=== PATIENT | female | born 1965 | race Caucasian/White ===

== ENCOUNTER 2020-05-07 19:40 | Inpatient (IN) | payer MEDICARE, SELFPAY ==
[2020-05-07] VITALS (7 sets, daily range): BP systolic 120–162; BP diastolic 48–119; PULSE 85–101; RESP 20–30; TEMP 36.6–36.9; O2SAT 90–98; BMI 37.7; BMI 37.8
--- NOTE | 2020-05-07 19:42 | EKG12_ITS ---
Test Reason : SOB Blood Pressure : / mmHG Vent. Rate : 098 BPM Atrial Rate : 098 BPM P-R Int : 132 ms QRS Dur : 084 ms QT Int : 348 ms P-R-T Axes : 044 -25 017 degrees QTc Int : 444 ms Normal sinus rhythm Possible Anterior infarct , age undetermined Abnormal ECG Confirmed by COLLEEN PLUMMER, BRIGITTE ([id number]), editor book DONATO OWEN ([id number]) on 05/10/2020 11:32:32 AM Referred By: DAYA Confirmed By:BRIGITTE MACIAS MD
--- NOTE | 2020-05-07 19:43 | RAD_ITS ---
STUDY: X-RAY CHEST REASON FOR EXAM: Female, 54 years old. Cough, shortness of breath x1 day. Unable to follow breathing instructions. TECHNIQUE: Single AP portable view of the chest. COMPARISON: None. FINDINGS: Low lung volumes. No pleural effusion. Mild bilateral pulmonary opacities. Normal size heart. Normal mediastinum and lesley. Normal visualized pulmonary arteries. Normal visualized aortic arch and descending thoracic aorta. Normal visualized thoracic spine. Normal visualized ribs, clavicles, and shoulders. There is no demonstrated abnormality of the visualized soft tissue structures of the upper abdomen. RAD/Chest 1 View (Portable) IMPRESSION: 1. Low lung volumes. 2. Mild bilateral pulmonary opacities suspicious for pneumonia. Follow-up is recommended. Electronically Signed: Destiney Mckeon MD at 21:27 EST Tel , Service support ,
--- NOTE | 2020-05-07 19:50 | ED.RN ---
NO OLD EKGS IN MUSE
--- NOTE | 2020-05-07 19:58 | ED.DCSUM_ITS ---
History of Present Illness Chief Complaint: Shortness of Breath Informant: Patient, EMS Onset: Days Worsened by: Exertion Relieved by: Oxygen Associated Symptoms: Chills, Cough, Fever, White sputum Narrative: Patient is a 54-year-old female denies any past medical history presenting with worsening shortness of breath and difficulty breathing. She states her symptoms been going on for the past week. She is had a cough has been productive of clear sputum. She does she states she is not been around anyone that is been sick but then states that her [id number] had Covid 2 to 3 weeks ago. Patient's been taking Tylenol for fever at home. She not murmur last time she had a dose. She checked her oxygen at home and it was 90% with exertion and 92% at rest. This is what made her decide to come to the emergency room. She called 911. Patient arrived on 2 L of oxygen. Patient has any swelling of her legs. She denies any other medical history. Nuys any nausea or vomiting. Denies any change in bowel habits. Denies any loss of taste or smell. No other complaints at this time. Past Medical History - Allergies and Home Meds Allergies/Adverse Reactions: Allergies No Known Allergies Allergy (Verified 05/07/20 19:41) Past Medical History: None Surgical History: cholecystectomy Lives: With Family Smoking Status: Never smoker Review of Systems General: Reports: Chills, Fever, Malaise. Denies: Sweats Eyes: Denies: Visual changes - bilaterally, Diplopia ENT: Denies: Rhinorrhea, Sore throat Cardiovascular: Denies: Chest pain, Palpitations Respiratory: Reports: Dyspnea, Cough, Sputum, Dyspnea on exertion Gastrointestinal: Denies: Abdominal pain, Nausea, Vomiting, Diarrhea, Melena, Hematochezia Genitourinary: Denies: Dysuria, Hematuria, Frequency Musculoskeletal: Denies: Back pain, Extremity Pain Skin: Denies: Rash, Wounds Neurological: Denies: Headache, Weakness, Numbness Physical Exam Vital Signs/Narrative: Vital Signs Temp Pulse Resp BP Pulse Ox 05/07/20 19:52 97 05/07/20 19:44 98.5 F 101 H 30 H 162/119 H 90 Inital Vital Signs reviewed: Yes General: Well nourished, Well developed, No Acute Distress Head: Normocephalic, Atraumatic Eyes: Perrl, EOMI ENT: Moist mucous membranes, No rhinorrhea Neck: Supple, Nontender Cardiovascular: Regular rate, Regular rhythm, No murmurs Respiratory: No distress, Chest nontender, Diminished, Decreased Air Movement, - - Crackles at the bases, right greater than left Abdomen: Soft, Nontender, Nondistended, Normal bowel sounds Back: Nontender, Normal Inspection Extremities: Nontender, No edema Skin: Normal color, No rash Neurological: Alert, Oriented x3, Cranial nerves II-XII grossly intact, Normal Strength, Normal Sensation Psychological: Normal affect, Normal Mood Diagnostic/Tx/Re-eval Chest X-Ray - ED: 1 View, Read by ED Physician, Right Infiltrate, Left Infiltrate Laboratory Data 05/07/20 05/07/20 05/07/20 20:00 20:00 20:00 WBC 6.4 RBC 5.95 H Hgb 15.6 H Hct 50.7 H MCV 85.2 MCH 26.2 L MCHC 30.8 L RDW Std Deviation 43.2 RDW Coeff of Emery 13.9 Plt Count 331 MPV 9.2 Immature Gran % (Auto) 1.100 H Neut % (Auto) 60.2 Lymph % (Auto) 31.3 [place] % (Auto) 5.9 Eos % (Auto) 0.2 Baso % (Auto) 1.3 H Absolute Neuts (auto) 3.9 Absolute Lymphs (auto) 2.00 Nucleated RBC % 0 Fibrinogen 834 H Sodium 139 Potassium 3.7 Chloride 105 Carbon Dioxide 26.0 Anion Gap 8 BUN 23 H Creatinine 1.09 H Estim Creat Clear Calc 56.52 Est GFR (MDRD) Af Amer 68 Est GFR (MDRD) Non-Af 56 L BUN/Creatinine Ratio 21.1 H Glucose 161 H Lactic Acid Calcium 9.1 Total Bilirubin 0.50 AST 57 H ALT 29 Alkaline Phosphatase 103 Lactate Dehydrogenase 453 H Total Creatine Kinase 146 Troponin I < 0.015 Total Protein 8.5 H Albumin 2.9 L Globulin 5.6 H Albumin/Globulin Ratio 0.5 L 05/07/20 20:00 WBC RBC Hgb Hct MCV MCH MCHC RDW Std Deviation RDW Coeff of Emery Plt Count MPV Immature Gran % (Auto) Neut % (Auto) Lymph % (Auto) [place] % (Auto) Eos % (Auto) Baso % (Auto) Absolute Neuts (auto) Absolute Lymphs (auto) Nucleated RBC % Fibrinogen Sodium Potassium Chloride Carbon Dioxide Anion Gap BUN Creatinine Estim Creat Clear Calc Est GFR (MDRD) Af Amer Est GFR (MDRD) Non-Af BUN/Creatinine Ratio Glucose Lactic Acid 1.9 Calcium Total Bilirubin AST ALT Alkaline Phosphatase Lactate Dehydrogenase Total Creatine Kinase Troponin I Total Protein Albumin Globulin Albumin/Globulin Ratio - Rhythm Strip Rhythm Strip: Sinus Rhythm Rate: 98 Ectopy: None - EKG Initial EKG Interpretation: Sinus Rhythm, - - Sinus rhythm at a rate of 98Normal intervalsLeft axisNormal ST segments Treatment - Dyspnea: Oxygen - Medical Decision Making Patient evaluated for worsening shortness of breath. She has had cough and respiratory symptoms for about a week. She is had exposure to people with COVID-19. Patient arrives tachypneic and 90% on room air. She is requiring supplemental oxygen. Chest x-ray interpreted by myself appears to be a patchy multifocal infiltrate consistent with COVID-19 pneumonia. No leukocytosis. Slightly hemoconcentrated with a hemoglobin of 15.6 but her platelets are normal at 331. Creatinine is 1.09 and I do not have a baseline to compare to. Patient does have an elevated lactate dehydrogenase and fibrinogen consistent with COVID-19 infection. She will be admitted to hospital service for further treatment and management. Patient is given IV Decadron in the ER. Patient is stable at time of disposition and agreeable with plan of care. ED Disposition - Plan for ED Patient: Disposition: Acute Care Hospital [facility] Diagnosis: Dyspnea due to COVID-19, Pneumonia due to COVID-19 virus
[2020-05-07 20:24] LABS: Fibrinogen 834 mg/dl (203-444)
[2020-05-07 20:25] LABS: Absolute Neutrophil Count 3.9 X10^3/uL (2.0-7.7); Basophil# 0.08 X10^3/uL; Basophil% 1.3 % (0-1); Eosinophil# 0.01 X10^3/uL; Eosinophils% 0.2 % (0-5); Hematocrit 50.7 % (37-47); Hemoglobin 15.6 g/dL (12.0-15.0); Lymphocyte % 31.3 % (19-41); Mean Corp Hgb Conc 30.8 g/dL (32-36); Mean Corpuscular Hgb 26.2 pg (27.0-32.0); Mean Corpuscular Volume 85.2 fL (81-99); Mean Platelet Vol. 9.2 fl (6.2-12.0); Monocyte# 0.38 X10^3/uL; Monocyte% 5.9 % (0-10); NRBC Flagged by Analyzer 0 % (0-5); Neutrophil # 3.86 X10^3/uL (2.7-7.7); Neutrophil % 60.2 % (47-70); POSITIVE MORPHOLOGY YES; Platelet Count 331 K/mm3 (150-450); RBC Distribution Width CV 13.9 % (11.6-14.6); RBC Distribution Width SD 43.2 fl (35.1-43.9); Red Blood Count 5.95 M/mm3 (4.2-5.4); White Blood Count 6.4 K/mm3 (4.4-11.0)
[2020-05-07 20:34] LABS: ALB/GLOB Ratio 0.5 RATIO (0.9-2.4); AST(SGOT) 57 U/L (15-37); Alanine Aminotransfer ALT/SGPT 29 U/L (13-56); Albumin, Serum 2.9 g/dL (3.2-5.0); Alkaline Phosphatase 103 U/L (45-117); Anion Gap 8 (5-15); BUN 23 mg/dL (7-18); BUN/Creat Ratio 21.1 RATIO (10-20); CPK Total, Creatine Kinase 146 U/L (26-192); Calcium,Total 9.1 mg/dL (8.5-10.1); Chloride 105 mmol/L (98-107); Creatinine, Serum 1.09 mg/dL (0.55-1.02); EST Glomerular Filtration Rate 56 mL/min (>60); Est Glom Filt Rate - Afr Amer 68 mL/min (>60); Estimated Creatinine Clearance 56.52 ml/min; Globulin 5.6 g/dL (2.2-4.2); Glucose 161 mg/dL (74-106); LDH 453 U/L (84-246); Potassium 3.7 mmol/L (3.5-5.1); Protein, Total 8.5 g/dL (6.4-8.2); Sodium Level 139 mmol/L (136-145)
[2020-05-07 20:49] LABS: Differential Indicated SCAN CRITERIA MET
[2020-05-07] MEDS: dexAMETHasone 10 MG/ML Vial IV (20:55)
[2020-05-07 20:56] LABS: Lactic Acid 1.9 mmol/L (0.4-1.9)
--- NOTE | 2020-05-07 21:08 | HP.PCM_ITS ---
Problem List (1) Suspected COVID-19 virus infection Status: Acute (2) Dyspnea due to COVID-19 Status: Acute History of Present Illness Date of Admission: 05/07/20 Chief Complaint: shortness of breath The patient is a 54 year old patient of the [facility] who presents the emergency room by squad due to shortness of breath. Patient states onset of symptoms began last week on Thursday and have progressively gotten worse over the course of the week. The patient has not been able to move very far over the past 2 days without becoming very short of breath. Respiratory rate of 40 and oxygen saturation are 90% on room air with pronounced cough and difficulty breathing. Chest x-ray reveals Covid-like pattern and Covid test was pending at time of admission. She had been exposed previously at a and by other known family members known to have had the virus. Due to oxygen requirement and acute shortness of breath patient will be admitted for management of Covid disease. The patient did improve with oxygen supplementation in the emergency room and is stable for the cohort floor. Past Medical History Allergies No Known Allergies Allergy (Verified 05/07/20 19:41) Home Medications: Ambulatory Orders Medication Instructions Recorded NK 05/07/20 Surgical History: cholecystectomy Lives: With Family Smoking Status: Never smoker Review of Systems Constitutional: Reports: Weakness, Fatigue HEENT: Denies: Difficulty Swallowing, Head Aches Cardiovascular: Denies: Chest Pain Respiratory: Reports: Cough, Shortness of breath at rest, Shortness of breath upon exertion Gastrointestinal: Denies: Abdominal Pain Genitourinary: Denies: Dysuria Musculoskeletal: Denies: Muscle pain Neurological: Denies: Confusion Psychiatric: Denies: Anxiety VTE Information - Inpt Only VTE Present on Admission: No VTE Mechan Device Prophylaxis: None VTE Pharm Prophylaxis ordered?: Yes - Physical Exam Vitals/I&O's: Vital Signs Temp Pulse Resp BP Pulse Ox 98.2 F 98 27 H 135/48 H 98 05/07/20 21:04 05/07/20 21:04 05/07/20 21:04 05/07/20 21:04 05/07/20 21:04 Oxygen Flow Rate (L/min) 2 Oxygen Delivery Method Nasal Cannula Weight: 233 lb 14.567 oz Body Mass Index (BMI) 37.7 Intake and Output for Last 24 Hours 05/06/20 05/06/20 05/07/20 00:59 23:59 23:59 Intake Total 500 / 500 Balance 500 / 500 General: Alert, Oriented x3, Cooperative HEENT: Atraumatic, Normocephalic Neck: Supple Lungs: Diminished, Wheezes Cardiovascular: Regular rate, Normal S1, Normal S2, No murmurs Abdomen: Bowel Sounds Present Extremities: No edema, Capillary Refill Less than 3 Seconds Skin: No rashes Musculoskeletal: No Tenderness to Palpation of Joints or Extremities Neurological: Neuro grossly intact Psych/Mental Status: Normal Affect, Appropriate Laboratory Results 05/07/20 19:45: COVID-19 (CON) Pending 05/07/20 20:00: Fibrinogen 834 H 05/07/20 20:00: Sodium 139, Potassium 3.7, Chloride 105, Carbon Dioxide 26.0, Anion Gap 8, BUN 23 H, Creatinine 1.09 H, Estim Creat Clear Calc 56.52, Est GFR (MDRD) Af Amer 68, Est GFR (MDRD) Non-Af 56 L, BUN/Creatinine Ratio 21.1 H, Glucose 161 H, Calcium 9.1, Total Bilirubin 0.50, AST 57 H, ALT 29, Alkaline Phosphatase 103, Lactate Dehydrogenase 453 H, Total Creatine Kinase 146, Troponin I < 0.015, Total Protein 8.5 H, Albumin 2.9 L, Globulin 5.6 H, Albumin/Globulin Ratio 0.5 L 05/07/20 20:00: Procalcitonin Pending 05/07/20 20:00: WBC 6.4, RBC 5.95 H, Hgb 15.6 H, Hct 50.7 H, MCV 85.2, MCH 26.2 L, MCHC 30.8 L, RDW Std Deviation 43.2, RDW Coeff of Emery 13.9, Plt Count 331, MPV 9.2, Immature Gran % (Auto) 1.100 H, Neut % (Auto) 60.2, Lymph % (Auto) 31.3, [place] % (Auto) 5.9, Eos % (Auto) 0.2, Baso % (Auto) 1.3 H, Absolute Neuts (auto) 3.9, Absolute Lymphs (auto) 2.00, Nucleated RBC % 0 05/07/20 20:00: Lactic Acid 1.9 Assessment/Plan All Active Problems Suspected COVID-19 virus infection (Acute) Dyspnea due to COVID-19 (Acute) Plan 1. Suspected Covid 19/respiratory distress?admit patient to Covid cohort floor, initiate strict isolation recall with oxygen support, albuterol HFA every 4 hours as needed shortness of breath, patient received dose of Decadron in the emergency room will see if that is necessary to repeat tomorrow. Will allow for regular diet, CBC in the morning and attempt to wean off oxygen as tolerated. 2. DVT prophylaxis?low molecular weight heparin Inpatient E&M: 39378 Init Hosp L3
[2020-05-07 21:18] LABS: Procalcitonin 0.15 ng/mL (0.00-0.09)
[2020-05-07 21:44] LABS: Atypical Lymphocyte RARE %; Differential Comment SCANNED
[2020-05-08] MEDS: guaiFENesin/Codeine 5 ML UDC PO (01:26)
[2020-05-08 04:24] VITALS: BP 113/65; PULSE 79; RESP 22; TEMP 36.5; O2SAT 92
[2020-05-08 06:23] VITALS: BP 121/76; PULSE 79; RESP 20; TEMP 36.6; O2SAT 95
[2020-05-08 07:40] LABS: Absolute Lymphocyte Count 1.22 X10^3/uL (0.83-4.51); Absolute Neutrophil Count 3.1 X10^3/uL (2.0-7.7); Basophil# 0.05 X10^3/uL; Basophil% 1.1 % (0-1); Hematocrit 46.2 % (37-47); Lymphocyte # 1.22 X10^3/ul (4.0); Lymphocyte % 26.1 % (19-41); Mean Corp Hgb Conc 30.3 g/dL (32-36); Mean Corpuscular Volume 85.9 fL (81-99); Mean Platelet Vol. 9.3 fl (6.2-12.0); Monocyte# 0.21 X10^3/uL; Monocyte% 4.5 % (0-10); NRBC Flagged by Analyzer 0 % (0-5); Neutrophil # 3.09 X10^3/uL (2.7-7.7); Neutrophil % 66.2 % (47-70); POSITIVE MORPHOLOGY YES; Platelet Count 339 K/mm3 (150-450); RBC Distribution Width SD 43.8 fl (35.1-43.9); Red Blood Count 5.38 M/mm3 (4.2-5.4); White Blood Count 4.7 K/mm3 (4.4-11.0)
[2020-05-08 07:58] LABS: Differential Indicated SCAN CRITERIA MET
[2020-05-08 08:56] LABS: Reactive Lymphocyte 1+
[2020-05-08] MEDS: Enoxaparin 40 MG/0.4 ML Syringe SC (09:31)
--- NOTE | 2020-05-08 10:56 | PN_ITS ---
Patient Problems: Active and Suspected Problems Suspected COVID-19 virus infection (Acute) Dyspnea due to COVID-19 (Acute) Dyspnea due to COVID-19 (Acute) Pneumonia due to COVID-19 virus (Acute) Subjective: Patient seen and examined. She was admitted with a complaint of progressively worsening shortness of breath and was diagnosed with Covid pneumonia.She is on 3L of oxygen this morning, and has no complaints. She is feeling better than when she came in. She has remained hemodynamically stable. Vitals/I&O's: Vital Signs Temp Pulse Resp BP Pulse Ox 97.9 F 79 20 H 121/76 H 95 05/08/20 06:23 05/08/20 06:23 05/08/20 06:23 05/08/20 06:23 05/08/20 06:23 Oxygen Flow Rate (L/min) 3 Oxygen Delivery Method Nasal Cannula Weight: 227 lb 1.218 oz Body Mass Index (BMI) 37.8 Intake and Output for Last 24 Hours 05/06/20 05/07/20 05/08/20 23:59 23:59 23:59 Intake Total 500 / 500 0 / 0 Output Total 0 / 0 Balance 500 / 500 0 / 0 General: Alert, Oriented x3, Cooperative, No apparent distress HEENT: Atraumatic, PERRLA, EOMI, Normocephalic Oral: Moist Mucosa Neck: Supple, No JVD, Negative Carotid Bruits Lungs: - - diminished breath sounds bibasally, no wheezes or crackles. On 3L of oxygen by nasal canula Cardiovascular: Regular rate, Regular Rhythm, Normal S1, Normal S2, No murmurs Abdomen: Bowel Sounds Present, Soft, Non Tender, Non-Distended, No Hepato- splenomegaly Extremities: No clubbing, No cyanosis, No edema, Capillary Refill Less than 3 Seconds Skin: No rashes, No breakdown Musculoskeletal: No Tenderness to Palpation of Joints or Extremities Lymphatic: No Cervical, Supraclavicular, or Inguinal Adenopathy Neurological: Cranial nerves II-XII grossly intact, Neuro grossly intact, Motor Exam 5/5 strength throughout Psych/Mental Status: Normal Affect, Appropriate, Alert and oriented to time, place, person, mood and affect Microbiology Past 72 Hours 05/07/20 19:45 Mucosa - Nasopharyngeal Respiratory Panel (PCR) - Final Laboratory Results 05/07/20 19:45: COVID-19 (CON) Detected 05/07/20 20:00: Fibrinogen 834 H 05/07/20 20:00: Sodium 139, Potassium 3.7, Chloride 105, Carbon Dioxide 26.0, Anion Gap 8, BUN 23 H, Creatinine 1.09 H, Estim Creat Clear Calc 56.52, Est GFR (MDRD) Af Amer 68, Est GFR (MDRD) Non-Af 56 L, BUN/Creatinine Ratio 21.1 H, Glucose 161 H, Calcium 9.1, Total Bilirubin 0.50, AST 57 H, ALT 29, Alkaline Phosphatase 103, Lactate Dehydrogenase 453 H, Total Creatine Kinase 146, Troponin I < 0.015, Total Protein 8.5 H, Albumin 2.9 L, Globulin 5.6 H, Albumin/Globulin Ratio 0.5 L 05/07/20 20:00: Procalcitonin 0.15 H 05/07/20 20:00: WBC 6.4, RBC 5.95 H, Hgb 15.6 H, Hct 50.7 H, MCV 85.2, MCH 26.2 L, MCHC 30.8 L, RDW Std Deviation 43.2, RDW Coeff of Emery 13.9, Plt Count 331, MPV 9.2, Immature Gran % (Auto) 1.100 H, Neut % (Auto) 60.2, Lymph % (Auto) 31.3, [place] % (Auto) 5.9, Eos % (Auto) 0.2, Baso % (Auto) 1.3 H, Absolute Neuts (auto) 3.9, Absolute Lymphs (auto) 2.00, Nucleated RBC % 0, Differential Comment SCANNED, Atypical Lymphocytes RARE 05/07/20 20:00: Lactic Acid 1.9 05/08/20 06:10: WBC 4.7, RBC 5.38, Hgb 14.0, Hct 46.2, MCV 85.9, MCH 26.0 L, MCHC 30.3 L, RDW Std Deviation 43.8, RDW Coeff of Emery 14.0, Plt Count 339, MPV 9.3, Immature Gran % (Auto) 2.100 H, Neut % (Auto) 66.2, Lymph % (Auto) 26.1, [place] % (Auto) 4.5, Eos % (Auto) 0.0, Baso % (Auto) 1.1 H, Absolute Neuts (auto) 3.1, Absolute Lymphs (auto) 1.22, Nucleated RBC % 0, Reactive Lymphocytes 1+ Diagnostic Data Chest X-Ray 05/07/20 19:43 IMPRESSION: 1. Low lung volumes. 2. Mild bilateral pulmonary opacities suspicious for pneumonia. Follow-up is recommended. Electronically Signed: Destiney Mckeon MD at 21:27 EST Tel , Service support , Current Medications Albuterol Sulfate (Albuterol Sulfate 18 Gm Inhaler (200 Puffs)) 2 puff IH Q4H PRN PRN PRN Reason: SHORTNESS OF BREATH Last Admin: 05/08/20 00:50 Dose: 2 puff Documented by: Enoxaparin Sodium (Enoxaparin 40 Mg/0.4 Ml Syringe) 40 mg SC DAILY CHANTAL Last Admin: 05/08/20 09:31 Dose: 40 mg Documented by: Guaifenesin/Codeine Phosphate (Guaifenesin/Codeine 5 Ml Udc) 5 ml PO Q6H PRN PRN PRN Reason: COUGH Last Admin: 05/08/20 01:26 Dose: 5 ml Documented by: Miscellaneous Information (Inhaler, Assist Devices 1 Each Spacer) 1 each INHALATION PRN PRN PRN Reason: WITH ALBUTEROL MDI Ondansetron HCl (Ondansetron 4 Mg/2 Ml Vial) 4 mg IV Q8H PRN PRN PRN Reason: NAUSEA/VOMITING Sodium Chloride (0.9% Saline Lock 10 Ml Syringe) 10 - 40 ml IV UD PRN PRN Reason: SALINE FLUSH Medical Necessity - Tobacco Use Smoking Status: Never smoker Assessment/Plan All Active Problems Suspected COVID-19 virus infection (Acute) Dyspnea due to COVID-19 (Acute) Dyspnea due to COVID-19 (Acute) Pneumonia due to COVID-19 virus (Acute) # Acute hypoxic respiratory insufficiency due to COVID 19 infection * On 3 L of oxygen by nasal cannula * Titrate oxygen to maintain saturation above 90%. * On IV Decadron. * Breathing treatment with bronchodilators. * Pulmonology consulted. * #COVID-19 pneumonia: As above #DVT prophylaxis: Lovenox Inpatient E&M: 43278 Subs Hosp L3
[2020-05-08 12:20] VITALS: BP 142/83; PULSE 89; RESP 18; TEMP 36.4; O2SAT 93
--- NOTE | 2020-05-08 13:40 | CASEMGMT ---
JUAN GARCIA called patient in room for initial transition planning/care coordination assessment. JUAN GARCIA introduced self and role at [facility]. Patient is alert and oriented. Patient willing to participate in assessment and is able to answer all questions appropriately. Care providers, pharmacy, and demographics verified. Patient wishes to discharge home, denies need for home health at this time. Patient states she has no further needs or concerns at this time. CM to follow for discharge planning needs that may arise. PCP: Ja Specialists: none Preferred Pharmacy: [facility] with [facility] retail at discharge. Insurance: none Prescription Benefit: none Living Will/HPOA: none LNOK: Living Arrangements: Patient lives with children in a 2 story home with bed and bath on first floor. 2 steps to enter the home with railing. Patient states she is independent at home. Patient states that no one else in the home as been sick. JUAN GARCIA instructed that and children should be isolating at home and following directions of health depepartment. Transportation: self/ DME/HHC: Patient state she has cane at home. Patient would like [employer] at discharge for DME. Will monitor need for home oxygen at discharge. Disposition Plan: Patient to discharge home with family support and follow-up plans in place. Alisa BOO, RN, CM
[2020-05-08 18:20] VITALS: BP 145/83; PULSE 93; RESP 18; TEMP 36.4; O2SAT 94
[2020-05-08 20:20] VITALS: BP 152/77; PULSE 90; RESP 20; TEMP 36.9; O2SAT 95
[2020-05-09] VITALS (7 sets, daily range): BP systolic 120–159; BP diastolic 75–89; PULSE 68–93; RESP 18–22; TEMP 36.4–36.8; O2SAT 94–97
[2020-05-09 08:29] LABS: Absolute Lymphocyte Count 2.88 X10^3/uL (0.83-4.51); Absolute Neutrophil Count 6.1 X10^3/uL (2.0-7.7); Basophil# 0.03 X10^3/uL; Basophil% 0.3 % (0-1); Eosinophil# 0.01 X10^3/uL; Eosinophils% 0.1 % (0-5); Hemoglobin 13.4 g/dL (12.0-15.0); Lymphocyte # 2.88 X10^3/ul (4.0); Lymphocyte % 29.4 % (19-41); Mean Corp Hgb Conc 29.8 g/dL (32-36); Mean Corpuscular Volume 87.2 fL (81-99); Mean Platelet Vol. 9.1 fl (6.2-12.0); Monocyte# 0.55 X10^3/uL; Monocyte% 5.6 % (0-10); NRBC Flagged by Analyzer 0 % (0-5); Neutrophil # 6.12 X10^3/uL (2.7-7.7); Neutrophil % 62.5 % (47-70); POSITIVE MORPHOLOGY YES; Platelet Count 429 K/mm3 (150-450); RBC Distribution Width SD 45.1 fl (35.1-43.9); Red Blood Count 5.16 M/mm3 (4.2-5.4); White Blood Count 9.8 K/mm3 (4.4-11.0)
[2020-05-09 08:30] LABS: Differential Indicated SCAN CRITERIA MET
[2020-05-09 08:45] LABS: Anion Gap 7 (5-15); BUN 24 mg/dL (7-18); BUN/Creat Ratio 21.4 RATIO (10-20); Calcium,Total 8.9 mg/dL (8.5-10.1); Chloride 109 mmol/L (98-107); Creatinine, Serum 1.12 mg/dL (0.55-1.02); EST Glomerular Filtration Rate 54 mL/min (>60); Est Glom Filt Rate - Afr Amer 66 mL/min (>60); Estimated Creatinine Clearance 52.87 ml/min; Glucose 152 mg/dL (74-106); Potassium 3.6 mmol/L (3.5-5.1); Sodium Level 144 mmol/L (136-145)
[2020-05-09 09:00] LABS: Differential Comment SCANNED
[2020-05-09] MEDS: Enoxaparin 40 MG/0.4 ML Syringe SC (09:41)
[2020-05-09] MEDS: 0.9% Saline Lock 10 ML Syringe IV (09:41)
--- NOTE | 2020-05-09 11:00 | PN_ITS ---
Patient Problems: Active and Suspected Problems Suspected COVID-19 virus infection (Acute) Dyspnea due to COVID-19 (Acute) Dyspnea due to COVID-19 (Acute) Pneumonia due to COVID-19 virus (Acute) Objective: Patient seen and examined. She is feeling better today though she remains on 2 L of oxygen. Review of symptoms otherwise negative. Labs and vitals reviewed. She has remained hemodynamically stable. Vitals/I&O's: Vital Signs Temp Pulse Resp BP Pulse Ox 98.2 F 93 18 124/81 H 94 05/09/20 09:47 05/09/20 09:47 05/09/20 09:47 05/09/20 09:47 05/09/20 09:48 Oxygen Flow Rate (L/min) 2 Oxygen Delivery Method Nasal Cannula Weight: 227 lb 1.218 oz Body Mass Index (BMI) 37.8 Intake and Output for Last 24 Hours 05/07/20 05/08/20 05/09/20 23:59 23:59 23:59 Intake Total 500 / 500 600 / 600 Output Total 0 / 0 Balance 500 / 500 600 / 600 General: Alert, Oriented x3, Cooperative, No apparent distress HEENT: Atraumatic, PERRLA, EOMI, Normocephalic Oral: Moist Mucosa Neck: Supple, No JVD, Negative Carotid Bruits Lungs: - - diminished breath sounds bibasally, no wheezes or crackles. On 2L of oxygen by nasal canula Cardiovascular: Regular rate, Regular Rhythm, Normal S1, Normal S2, No murmurs Abdomen: Bowel Sounds Present, Soft, Non Tender, Non-Distended, No Hepato- splenomegaly Extremities: No clubbing, No cyanosis, No edema, Capillary Refill Less than 3 Seconds Skin: No rashes, No breakdown Musculoskeletal: No Tenderness to Palpation of Joints or Extremities Lymphatic: No Cervical, Supraclavicular, or Inguinal Adenopathy Neurological: Cranial nerves II-XII grossly intact, Neuro grossly intact, Motor Exam 5/5 strength throughout Psych/Mental Status: Normal Affect, Appropriate, Alert and oriented to time, p lace, person, mood and affect Microbiology Past 72 Hours 05/07/20 19:45 Mucosa - Nasopharyngeal Respiratory Panel (PCR) - Final Laboratory Results 05/09/20 08:00: WBC 9.8, RBC 5.16, Hgb 13.4, Hct 45.0, MCV 87.2, MCH 26.0 L, MCHC 29.8 L, RDW Std Deviation 45.1 H, RDW Coeff of Emery 14.0, Plt Count 429, MPV 9.1, Immature Gran % (Auto) 2.100 H, Neut % (Auto) 62.5, Lymph % (Auto) 29.4, [place] % (Auto) 5.6, Eos % (Auto) 0.1, Baso % (Auto) 0.3, Absolute Neuts (auto) 6.1, Absolute Lymphs (auto) 2.88, Nucleated RBC % 0, Differential Comment SCANNED 05/09/20 08:00: Sodium 144, Potassium 3.6, Chloride 109 H, Carbon Dioxide 28.0, Anion Gap 7, BUN 24 H, Creatinine 1.12 H, Estim Creat Clear Calc 52.87, Est GFR (MDRD) Af Amer 66, Est GFR (MDRD) Non-Af 54 L, BUN/Creatinine Ratio 21.4 H, Glucose 152 H, Calcium 8.9 Diagnostic Data Chest X-Ray 05/07/20 19:43 IMPRESSION: 1. Low lung volumes. 2. Mild bilateral pulmonary opacities suspicious for pneumonia. Follow-up is recommended. Electronically Signed: Destiney Mckeon MD at 21:27 EST Tel , Service support , Current Medications Albuterol Sulfate (Albuterol Sulfate 18 Gm Inhaler (200 Puffs)) 2 puff IH Q4H PRN PRN PRN Reason: SHORTNESS OF BREATH Last Admin: 05/08/20 00:50 Dose: 2 puff Documented by: Enoxaparin Sodium (Enoxaparin 40 Mg/0.4 Ml Syringe) 40 mg SC DAILY CHANTAL Last Admin: 05/09/20 09:41 Dose: 40 mg Documented by: Guaifenesin/Codeine Phosphate (Guaifenesin/Codeine 5 Ml Udc) 5 ml PO Q6H PRN PRN PRN Reason: COUGH Last Admin: 05/08/20 01:26 Dose: 5 ml Documented by: Miscellaneous Information (Inhaler, Assist Devices 1 Each Spacer) 1 each INHALATION PRN PRN PRN Reason: WITH ALBUTEROL MDI Ondansetron HCl (Ondansetron 4 Mg/2 Ml Vial) 4 mg IV Q8H PRN PRN PRN Reason: NAUSEA/VOMITING Sodium Chloride (0.9% Saline Lock 10 Ml Syringe) 10 - 40 ml IV UD PRN PRN Reason: SALINE FLUSH Last Admin: 05/09/20 09:41 Dose: 10 ml Documented by: KOJO Vital Signs/Narrative: Vital Signs Temp Pulse Resp BP Pulse Ox 05/09/20 09:48 94 05/09/20 09:47 98.2 F 93 18 124/81 H 97 05/09/20 09:46 97 Medical Necessity - Tobacco Use Smoking Status: Never smoker Assessment/Plan All Active Problems Suspected COVID-19 virus infection (Acute) Dyspnea due to COVID-19 (Acute) Dyspnea due to COVID-19 (Acute) Pneumonia due to COVID-19 virus (Acute) # Acute hypoxic respiratory insufficiency due to COVID 19 infection * now on 2 L of oxygen by nasal cannula; says she is feeling much better * Titrate oxygen to maintain saturation above 90%. * on PO decadron * Breathing treatment with bronchodilators. * #COVID-19 infection: As above #DVT prophylaxis: Lovenox Inpatient E&M: 12777 Subs Hosp L2
--- NOTE | 2020-05-09 17:28 | CON.PCM_ITS ---
Problem List (1) Pneumonia due to COVID-19 virus Status: Acute Reason for Consult: covid Consulted by: Dr. Ambrose History of Present Illness: The patient is a 54 year old F went to , then 04/26, developed fatigue, aches, not feeling well. Then developed chills, cough, dyspnea. No one else at home is sick, none have been tested. Came to ED, sat of 90%, put on O2 and dex. Feeling much better. Full ROS performed and neg except as noted above. - Medical History Surgical History: reviewed Allergies/Adverse Reactions: Allergies No Known Allergies Allergy (Verified 05/07/20 19:41) Home Medications: Ambulatory Orders Medication Instructions Recorded NK 05/07/20 - Social History Tobacco Use: non-smoker Vital Signs Temp Pulse Resp BP Pulse Ox 98.1 F 82 19 H 159/89 H 94 05/09/20 16:25 05/09/20 16:25 05/09/20 16:25 05/09/20 16:25 05/09/20 16:25 Oxygen Flow Rate (L/min) 2 Oxygen Delivery Method Nasal Cannula Weight: 103 kg Body Mass Index (BMI) 37.8 Microbiology Past 72 Hours 05/07/20 19:45 Respiratory Panel (PCR) - Final Mucosa - Nasopharyngeal Laboratory Tests Past 24 Hrs 05/09/20 05/09/20 08:00 08:00 WBC 9.8 RBC 5.16 Hgb 13.4 Hct 45.0 MCV 87.2 MCH 26.0 L MCHC 29.8 L RDW Std Deviation 45.1 H RDW Coeff of Emery 14.0 Plt Count 429 MPV 9.1 Immature Gran % (Auto) 2.100 H Neut % (Auto) 62.5 Lymph % (Auto) 29.4 [place] % (Auto) 5.6 Eos % (Auto) 0.1 Baso % (Auto) 0.3 Absolute Neuts (auto) 6.1 Absolute Lymphs (auto) 2.88 Nucleated RBC % 0 Differential Comment SCANNED Sodium 144 Potassium 3.6 Chloride 109 H Carbon Dioxide 28.0 Anion Gap 7 BUN 24 H Creatinine 1.12 H Estim Creat Clear Calc 52.87 Est GFR (MDRD) Af Amer 66 Est GFR (MDRD) Non-Af 54 L BUN/Creatinine Ratio 21.4 H Glucose 152 H Calcium 8.9 - Other Studies Radiology: [] reviewed Other Studies: [] Route of nutrition/ use of supplements: [] Nutritional Intake: [] IV Site: [] Ornelas Catheter: [] - Physical Exam General: Alert, Oriented x3, Cooperative, No apparent distress HEENT: Atraumatic, PERRLA, EOMI Neck: Supple, No Nodes Lungs: Clear to auscultation, Diminished Cardiovascular: Regular rate, Regular Rhythm Abdomen: Soft, Non Tender, Non-Distended Extremities: No edema Skin: No rashes IV Site: Peripheral, without redness Musculoskeletal: No Tenderness to Palpation of Joints or Extremities Neurological: Cranial nerves II-XII grossly intact - Assessment/Plan Antibiotics: [] Assessment/Plan: [] Active and Suspected Problems Suspected COVID-19 virus infection (Acute) Dyspnea due to COVID-19 (Acute) Dyspnea due to COVID-19 (Acute) Pneumonia due to COVID-19 virus (Acute) covid with hypoxia - sx started 04/26, feeling better, so likely minimal benefit from plasma and remdesivir. Cont dex, plan on 10 days total at discharge, ok for home once O2 as needed is arranged. Recommend family get tested and quarantine. Will follow, thank you
[2020-05-10 05:29] VITALS: BP 130/82; PULSE 76; RESP 20; TEMP 36.4; O2SAT 97
[2020-05-10 10:16] VITALS: BP 160/74; PULSE 84; RESP 18; TEMP 36.4; O2SAT 96
[2020-05-10] MEDS: Enoxaparin 40 MG/0.4 ML Syringe SC (10:18)
[2020-05-10] MEDS: dexAMETHasone 4 MG Tablet 6 MG PO (10:19)
[2020-05-10 10:24] VITALS: O2SAT 91; O2SAT 94
--- NOTE | 2020-05-10 11:22 | PCM.DC ---
- Discharge Diagnoses Current Active Problems: Current Active and Chronic Problems Suspected COVID-19 virus infection (Acute) Dyspnea due to COVID-19 (Acute) Dyspnea due to COVID-19 (Acute) Pneumonia due to COVID-19 virus (Acute) You will use the following diet at home:: Cardiac Your food should be the consistency of: Regular Your liquids should be the consistency of: Regular/Thin Discharge Activity: Return to Normal Activity Weight Bearing Status: Weight bearing as tolerated Call your doctor if you observe: Fever of 101 or Higher, Shortness of breath, Swelling in the ankles, Chest pain, Increased palpitations (irregular heartbeat) Instructions: ED Dyspnea Additional Instructions: self isolate at home till 05/21/2020 to complete 14 days of self isolation. Immediate contacts at home to get tested for COVID also. Allergies/Adverse Reactions: Allergies No Known Allergies Allergy (Verified 05/07/20 19:41) Medications to take at Discharge Dexamethasone [Decadron] 6 mg PO DAILY #9 tab 05/10/20 The following prescriptions were given: Dexamethasone [Decadron] 6 mg PO DAILY #9 tab Transmission Status: Pending to [facility] Primary Care Physician: Robi Peres DO [Primary Care Provider] - Please follow up with your Primary Care Physician in: 1-2 weeks Test Results: Test results from this visit will be discussed in further detail at your follow-up appointment, if applicable. Proposed Discharge Date: 05/10/20
--- NOTE | 2020-05-10 11:25 | DS.PCM_ITS ---
Discharge Date and Diagnosis - Problem List Patient Problems: Active and Suspected Problems Suspected COVID-19 virus infection (Acute) Dyspnea due to COVID-19 (Acute) Dyspnea due to COVID-19 (Acute) Pneumonia due to COVID-19 virus (Acute) Date of Admission: 05/07/20 Date of Discharge: 05/10/20 - Primary Discharge Diagnosis Acute Problems: Active Problems COVID-19 virus infection (Acute) Dyspnea due to COVID-19 (Acute) Dyspnea due to COVID-19 (Acute) Pneumonia due to COVID-19 virus (Acute) acute hypoxic respiratory insufficiency due to COVID 19 infection Hospital Course and Treatment Imaging Results: Diagnostic Data Chest X-Ray 05/07/20 19:43 IMPRESSION: 1. Low lung volumes. 2. Mild bilateral pulmonary opacities suspicious for pneumonia. Follow-up is recommended. Electronically Signed: Destiney Mckeon MD at 21:27 EST Tel , Service support , ID- Dr Abdi Operations: None Procedures: None Summary of Care Provided: The patient is a 54 year old F admitted with a complaint of shortness of breath started a week prior to admission and it progressively worsened. It was worse with exertion. She also had a cough and she was saturating at 90% on room air with respiratory rate of 40. On admission, chest x-ray was typical for Covid and Covid test done was positive. Patient states she had been at a and was exposed to other family members who had had Covid. She was admitted and managed for acute hypoxic respiratory insufficiency due to COVID-19 infection. She was started on IV dexamethasone.Patient recently required just 2 L of oxygen and was weaned down to 1 L of oxygen and eventually to room air. Her symptoms improved markedly and she felt much better. ED was consulted and do not think patient would benefit from the severe convalescent plasma at that stage in her d isease course. Patient remained stable and was discharged home on 05/10/2020. Patient saturation on room air was 94% at rest and 91% with ambulation so she did not qualify for home oxygen. She was discharged home on 05/10/2020 and is continue staying in self-isolation till 05/21/2020 to complete 14 days of self- isolation since her positive test and she is also to have immediate contacts at home tested. She is to follow-up with her primary care doctor in 2 to 3 weeks, after self-isolation. Patient seen and examined prior to discharge. She had no complaints. Review of symptoms otherwise negative. Labs and vitals reviewed. Home medication reviewed and reconciled. O/E: [] Vital Signs Temp Pulse Resp BP Pulse Ox 97.6 F L 84 18 160/74 H 94 05/10/20 10:16 05/10/20 10:16 05/10/20 10:16 05/10/20 10:16 05/10/20 10:24 General: Alert, Oriented x3, Cooperative, No apparent distress HEENT: Atraumatic, PERRLA, EOMI, Normocephalic Oral: Moist Mucosa Neck: Supple, No JVD, Negative Carotid Bruits Lungs: - - clear to auscultation, no wheezes or crackles. On room air Cardiovascular: Regular rate, Regular Rhythm, Normal S1, Normal S2, No murmurs Abdomen: Bowel Sounds Present, Soft, Non Tender, Non-Distended, No Hepato- splenomegaly Extremities: No clubbing, No cyanosis, No edema, Capillary Refill Less than 3 Seconds Skin: No rashes, No breakdown Musculoskeletal: No Tenderness to Palpation of Joints or Extremities Lymphatic: No Cervical, Supraclavicular, or Inguinal Adenopathy Neurological: Cranial nerves II-XII grossly intact, Neuro grossly intact, Motor Exam 5/5 strength throughout Psych/Mental Status: Normal Affect, Appropriate, Alert and oriented to time, place, person, mood and affect Plan is for discharge home today. Patient Problems: Active and Suspected Problems Suspected COVID-19 virus infection (Acute) Dyspnea due to COVID-19 (Acute) Dyspnea due to COVID-19 (Acute) Pneumonia due to COVID-19 virus (Acute) - Physical Exam Vitals/I&O's: Vital Signs Temp Pulse Resp BP Pulse Ox 97.6 F L 84 18 160/74 H 94 05/10/20 10:16 05/10/20 10:16 05/10/20 10:16 05/10/20 10:16 05/10/20 10:24 Oxygen Flow Rate (L/min) 2 Oxygen Delivery Method Nasal Cannula Weight: 227 lb 1.218 oz Body Mass Index (BMI) 37.8 Intake and Output for Last 24 Hours 05/08/20 05/09/20 05/10/20 23:59 23:59 23:59 Intake Total 600 / 600 880 / 880 420 / 420 Output Total 0 / 0 Balance 600 / 600 880 / 880 420 / 420 Microbiology Past 72 Hours 05/07/20 20:10 Blood Culture (Wb) - Anticubital Left Blood Culture - Preliminary No growth in 48 hours. 05/07/20 20:00 Blood Culture (Wb) - Anticubital Right Blood Culture - Preliminary No growth in 48 hours. 05/07/20 19:45 Mucosa - Nasopharyngeal Respiratory Panel (PCR) - Final Current Medications Albuterol Sulfate (Albuterol Sulfate 18 Gm Inhaler (200 Puffs)) 2 puff IH Q4H PRN PRN PRN Reason: SHORTNESS OF BREATH Last Admin: 05/08/20 00:50 Dose: 2 puff Documented by: Dexamethasone (Dexamethasone 4 Mg Tablet) 6 mg PO DAILY [facility] Last Admin: 05/10/20 10:19 Dose: 6 mg Documented by: Enoxaparin Sodium (Enoxaparin 40 Mg/0.4 Ml Syringe) 40 mg SC DAILY [facility] Last Admin: 05/10/20 10:18 Dose: 40 mg Documented by: Guaifenesin/Codeine Phosphate (Guaifenesin/Codeine 5 Ml Udc) 5 ml PO Q6H PRN PRN PRN Reason: COUGH Last Admin: 05/08/20 01:26 Dose: 5 ml Documented by: Miscellaneous Information (Inhaler, Assist Devices 1 Each Spacer) 1 each INHALATION PRN PRN PRN Reason: WITH ALBUTEROL MDI Ondansetron HCl (Ondansetron 4 Mg/2 Ml Vial) 4 mg IV Q8H PRN PRN PRN Reason: NAUSEA/VOMITING Sodium Chloride (0.9% Saline Lock 10 Ml Syringe) 10 - 40 ml IV UD PRN PRN Reason: SALINE FLUSH Last Admin: 05/09/20 09:41 Dose: 10 ml Documented by: Discharge Diet: Low fat/ Low Cholesterol Discharge Activity: Return to Normal Activity Weight Bearing Status: Weight bearing as tolerated Call your doctor if you observe: Fever of 101 or Higher, Shortness of breath, Swelling in the ankles, Chest pain, Increased palpitations (irregular heartbeat) Home Medications: Medications to take at Discharge Dexamethasone [Decadron] 6 mg PO DAILY #9 tab 05/10/20 Following Prescriptions Were Given to Patient: Dexamethasone [Decadron] 6 mg PO DAILY #9 tab Transmission Status: Received by [facility] Primary Care Physician: Robi Peres DO [Primary Care Provider] - Please follow up with your Primary Care Physician in: 1-2 weeks Patient Instructions: ED Dyspnea Disposition: Home Minutes spent on discharge:: 35 Patient Condition:: Stable Medical Necessity - Tobacco Use Smoking Status: Never smoker Meaningful Use Info Meaningful Use Diagnoses (Choose all that apply): None applicable Inpatient E&M: 33323 Disch Hosp
--- NOTE | 2020-05-10 11:46 | CASEMGMT ---
Pt does not qualify for home oxygen at this time. Pt states no further questions/concerns/needs at this time. Jorden MARTINEZ CM
--- NOTE | 2020-05-11 17:40 | CASEMGMT ---
JUAN GARCIA Discharge Follow-up Phone Call: Call Date: 05/11/2020 Discharge Date: 05/10/2020 Time of Call: 1740 Admitting Diagnosis: COVID -19 Discharge follow-up call placed to patient. Identifying voicemail received and message left requesting a return call if she had any questions or concerns. Jadiel Garvey RN CM
== END 2020-05-10 15:27 | disposition home or self-care (01) | DRG 177 ==
LOC: ED 20:38 → PCU 21:26
PROVIDERS: Admitting Provider Family Medicine; Emergency Provider Emergency Medicine; PCP Family Medicine; Visit Provider Student in an Organized Health Care Education/Training Program
DX: U07.1 COVID-19 (principal); J12.89 Other viral pneumonia; R09.02 Hypoxemia
CPT/HCPCS: 36415; 71045; 80048; 80053; 82550; 83605; 83615; 84145; 84484; 85025; 85384; 87040; 87633; 87635; 93005; 97802; 99285; J7030; A4216; U0002